=== PATIENT | female | born 1985 | race Hispanic/Latino ===

== ENCOUNTER 2024-11-04 05:35 | Day surgery (SDC) | payer MEDICAID ==
[~2024-11-04] VITALS: Ht 144.8 cm; Wt 69.9 kg
[2024-11-04] VITALS (16 sets, daily range): BP systolic 101–123; BP diastolic 61–78; PULSE 67–107; RESP 15–18; TEMP 97.6–97.9
[~2024-11-04 05:35] MED LIST: METO-391 PO
[2024-11-04] MEDS: 0.9%NACL 1000ML 1,000 ML IV ONE (07:27)
[2024-11-04] MEDS ORDERED: SCOP1PAT11 TP (07:34)
[2024-11-04] MEDS ORDERED: OMEP40CA21 PO (07:34)
[2024-11-04] MEDS ORDERED: PANT40TA54 PO (07:34)
[2024-11-04] MEDS ORDERED: DOCU-280 PO (07:34)
[2024-11-04] MEDS ORDERED: ONDA-105 PO (07:34)
[2024-11-04] MEDS ORDERED: FAMO20TA8 PO (07:34)
[2024-11-04] MEDS ORDERED: TAMS-55 PO (07:34)
[2024-11-04] MEDS ORDERED: MIDAZOLAM HCL 1 MG/ML 2ML VIAL ONE (07:38)
[2024-11-04] MEDS ORDERED: LIDOCAINE PF 100MG/5ML (2%) SYRINGE 5ML ONE (07:55)
[2024-11-04] MEDS ORDERED: SUGAMMADEX SODIUM 200 MG/2 ML VIAL IV ONE (09:01)
== END 2024-11-04 10:37 | disposition home or self-care (01) ==
LOC: DAH 05:35
PROVIDERS: ATTEND Surgery
DX: K30 Functional dyspepsia (principal); K91.1 Postgastric surgery syndromes; K28.9 Gastrojejunal ulcer, unspecified as acute or chronic, without hemorrhage or perforation; K91.89 Other postprocedural complications and disorders of digestive system; K22.89 Other specified disease of esophagus; R10.9 Unspecified abdominal pain; D37.1 Neoplasm of uncertain behavior of stomach; E61.1 Iron deficiency; Z79.899 Other long term (current) drug therapy; Z98.84 Bariatric surgery status; Z90.49 Acquired absence of other specified parts of digestive tract; Z98.890 Other specified postprocedural states
CPT/HCPCS: 81025; 43270; C9901; J3010; J7030 ×2; J3490; J2003; J2250; J2704; A4620; C1726; A4215 ×2; A4223; A4222; A4221; A4663; A4606